=== PATIENT | female | born 1990 | race Caucasian/White ===

== ENCOUNTER 2017-01-17 15:23 | Outpatient (CLI) | payer MEDICARE, OTHER ==
--- NOTE | 2017-01-17 18:12 | Diagnostic Imaging Report ---
JESENIA BROWN [facility] [address] [facility] [address] Report Submission Date: Jan 17, 2017 4:11:08 PM CDT Patient Study Name: JELENA COVINGTON Date: Jan 17, 2017 3:49:56 PM CDT Modality Type: CR Gender: F Description: LOWER EXTREMITY : 88 Institution: [facility] Physician: JESENIA BROWN Examination: Plain film knee History: Knee discomfort Findings: 3 views of the knee demonstrates normal cortical margins. No fracture. No dislocation. No joint effusion. No soft tissue irregularity. Impression: No acute osseous abnormality. Electronically signed on Jan 17, 2017 4:11:08 PM CDT by: Noé SHAH
--- NOTE | 2017-01-17 18:13 | Diagnostic Imaging Report ---
JESENIA BROWN [facility] [address] [facility] [address] [address] Report Submission Date: Jan 17, 2017 4:12:30 PM CDT Patient Study Name: JELENA COVINGTON Date: Jan 17, 2017 3:38:52 PM CDT Modality Type: CR Gender: F Description: PELVIS : 88 Institution: [facility] Physician: JESENIA BROWN Examination: Plain film hip/pelvis History: Discomfort Comparison exams: None provided Findings: 3 views of the hip and pelvis demonstrates normal cortical margins. No fracture no dislocation. No soft tissue abnormality. Lumbar curvature and fixation hardware. Impression: No acute osseous abnormality. Electronically signed on Jan 17, 2017 4:12:30 PM CDT by: Noé SHAH
== END 2017-01-17 15:24 ==
LOC: RAD 15:23
PROVIDERS: ATTEND Family Medicine
DX: M25.552 Pain in left hip (principal); M25.562 Pain in left knee; W19.XXXA Unspecified fall, initial encounter; Y93.9 Activity, unspecified
CPT/HCPCS: 73562